=== PATIENT | female | born 1955 | race Caucasian/White ===

== ENCOUNTER 2019-11-12 22:14 | Emergency (ER) | payer BC ==
[~2019-11-12] VITALS: Ht 152.4 cm; Wt 54.6 kg
[2019-11-12 22:15] VITALS: BP 190/88
--- NOTE | 2019-11-12 22:55 | REPVR ---
PROCEDURE INFORMATION: Exam: XR Right Foot Complete Exam date and time: 11/12/2019 10:49 PM Age: 63 years old Clinical indication: Pain; Foot; Right; Additional info: Rolled right foot TECHNIQUE: Imaging protocol: XR Right foot. Views: 3 or more views. COMPARISON: No relevant prior studies available. FINDINGS: Bones/joints: Plantar calcaneal spur. Soft tissues: Normal. IMPRESSION: No acute findings. Electronically signed by: Mikey Byrne On 11/12/2019 22:55:17 PM
--- NOTE | 2019-11-12 22:57 | REPVR ---
PROCEDURE INFORMATION: Exam: XR Right Ankle Exam date and time: 11/12/2019 10:49 PM Age: 63 years old Clinical indication: Pain; Ankle; Right; Additional info: Rolled right ankle TECHNIQUE: Imaging protocol: XR Right ankle. Views: 3 or more views. COMPARISON: No relevant prior studies available. FINDINGS: Bones/joints: Plantar calcaneal spur. No acute findings. Soft tissues: Soft tissue swelling dorsal lateral aspect of the foot. IMPRESSION: Soft tissue swelling dorsal lateral aspect of the foot. No fracture. Electronically signed by: Mikey Byrne On 11/12/2019 22:57:00 PM
== END 2019-11-13 00:58 | disposition home or self-care (01) ==
LOC: M ED 22:14
DX: S93.601A Unspecified sprain of right foot, initial encounter (principal); X50.9XXA Other and unspecified overexertion or strenuous movements or postures, initial encounter; Y92.008 Other place in unspecified non-institutional (private) residence as the place of occurrence of the external cause; Z87.891 Personal history of nicotine dependence